=== PATIENT | male | born 1995 | race Caucasian/White ===

== ENCOUNTER → 2017-05-08 21:53 | Emergency (ER) | payer BC | END | disposition left against medical advice (07) | LOC: C.ER 21:53 | DX: M25.552 Pain in left hip (principal); Z02.9 Encounter for administrative examinations, unspecified ==

== ENCOUNTER 2017-05-09 04:05 | Emergency (ER) | payer BC ==
[2017-05-09 04:17] VITALS: PULSE 60; RESP 16; TEMP 97.6; O2SAT 100
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
[2017-05-09 06:33] VITALS: BP 107/69
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
== END 2017-05-09 06:34 | disposition home or self-care (01) ==
LOC: C.ER 04:05
DX: S02.81XA Fracture of other specified skull and facial bones, right side, initial encounter for closed fracture (principal); S02.2XXA Fracture of nasal bones, initial encounter for closed fracture; S70.02XA Contusion of left hip, initial encounter; Y04.0XXA Assault by unarmed brawl or fight, initial encounter